=== PATIENT | male | born 1995 | race African-American/Black ===

== ENCOUNTER 2018-03-26 10:03 | Emergency (ER) | payer BC ==
[~2018-03-26] VITALS: Ht 177.8 cm; Wt 83.9 kg
[2018-03-26 10:10] VITALS: BP_SYST 134
[2018-03-26 10:50] VITALS: BP_SYST 134
== END 2018-03-26 10:45 | disposition home or self-care (01) ==
LOC: SED 10:03
DX: J20.8 Acute bronchitis due to other specified organisms (principal); B97.89 Other viral agents as the cause of diseases classified elsewhere
CPT/HCPCS: 99283

== ENCOUNTER 2018-04-16 07:07 | Emergency (ER) | payer BC ==
[~2018-04-16] VITALS: Ht 175.3 cm; Wt 83.9 kg
--- NOTE | 2018-04-16 07:15 | NUR ---
Placed in room 2 . Placed on drop clipper, blood pressure machine and pulse oximeter. To gown for exam. Side rails up.
[2018-04-16 07:18] VITALS: BP_SYST 127
--- NOTE | 2018-04-16 07:18 | NUR ---
Pt presents to ER c/o sob and chest tightness since 0200 today. Pt reports that he woke up in the middle of the night with symptoms; pt reports hx of asthma. Pt denies chest pain, breathing 100% on room air with respirations at 24, no accessory muscle use, pt appears anxious, speaking full sentences. Pt AOX4, ambulatory.
--- NOTE | 2018-04-16 07:49 | NUR ---
ER at bedside examining patient.
[2018-04-16] MEDS ORDERED: PREDNISONE 20 MG TABLET PO ONE (08:00)
[2018-04-16] MEDS ORDERED: ALBUTEROL SULFATE 0.083% 2.5 MG/3 ML VIAL.NEB INH ONE (08:00)
--- NOTE | 2018-04-16 08:08 | NUR ---
Pt medicated as ordered by ER Dr. Suggs. Pt tolerated well; will continue to monitor.
[2018-04-16 09:20] VITALS: BP_SYST 127
--- NOTE | 2018-04-16 09:20 | NUR ---
Patient given written and verbal discharge instructions and verbalizes understanding. ER MD discussed with patient the results and treatment provided. Patient in stable condition. ID arm band removed. Rx of Albuterol and Prednisone given. Patient educated on pain management and to follow up with PMD. Pain Scale 0/10. Opportunity for questions provided and answered. Medication side effect fact sheet provided.
== END 2018-04-16 09:20 | disposition home or self-care (01) ==
LOC: SED 07:07
DX: J45.901 Unspecified asthma with (acute) exacerbation (principal); R03.0 Elevated blood-pressure reading, without diagnosis of hypertension
CPT/HCPCS: 71045; 93005; 94640; 99284; J7512; J7613

== ENCOUNTER 2019-10-11 09:17 | Emergency (ER) | payer BC ==
[~2019-10-11] VITALS: Ht 177.8 cm; Wt 86.2 kg
[2019-10-11 09:17] VITALS: BP_SYST 136
[2019-10-11 10:20] VITALS: BP_SYST 124
== END 2019-10-11 10:20 | disposition home or self-care (01) ==
LOC: SED 09:17
DX: R05 Cough (principal); J45.909 Unspecified asthma, uncomplicated
CPT/HCPCS: 99283